=== PATIENT | male | born 1965 ===

== ENCOUNTER 2021-07-31 06:00 | Day surgery (SDC) | payer OTHER ==
[2021-07-31] MEDS ORDERED: NEURONTIN600 M1 PO (13:06)
[2021-07-31] MEDS ORDERED: POLY119PG PO (13:06)
[2021-07-31] MEDS ORDERED: PERCOCET 5-3251 EACH PO (13:06)
== END 2021-07-31 16:25 | disposition home or self-care (01) ==
LOC: CIR.AMB 06:00
PROVIDERS: ATTEND Surgery
DX: K40.90 Unilateral inguinal hernia, without obstruction or gangrene, not specified as recurrent (principal)